=== PATIENT | female | born 1975 | race Caucasian/White ===

== ENCOUNTER 2017-02-21 10:15 | Emergency (ER) | payer OTHER ==
[~2017-02-21] VITALS: Ht 160 cm; Wt 77.7 kg
[~2017-02-21 10:15] MED LIST: ATIVAN 0.50.5 MG/TAB PO; LAMICTAL 100MG100 MG PO; LEXAPRO20 MG PO; NORCO 325 MG-51 TAB PO; NORCO 325 MG-7.1 TAB PO; PROZAC 10MG10 MG PO; WELLBUTRIN SR150 M1; WELLBUTRIN XL300 M1 PO
[2017-02-21 10:18] VITALS: BP 138/75; PULSE 92; TEMP 98.4
[2017-02-21] MEDS ORDERED: FLEXERIL 1010 MG/TAB PO (13:18)
[2017-02-21] MEDS ORDERED: NORCO 325 MG-51 TAB PO (13:18)
== END 2017-02-21 13:53 | disposition home or self-care (01) ==
LOC: COL.ER 10:15
DX: M54.5 Low back pain (principal); F32.9 Major depressive disorder, single episode, unspecified
CPT/HCPCS: J1885; J2360